=== PATIENT | male | born 1980 | race Caucasian/White ===

== ENCOUNTER 2018-09-19 10:15 | Day surgery (SDC) | payer OTHER ==
--- NOTE | 2018-09-13 09:48 | PREOPHP ---
DATE OF ADMISSION: 09/19/2018 Patient to have surgery with Dr. Bright Aguilera on 09/19/2018. REASON FOR CONSULTATION: Consultation requested by Dr. Bright Aguilera for medical evaluation and trang arance of a 37-year-old gentleman about to undergo surgery. Thank you, Dr. Aguilera, for allowing us to participate in care of this patient. HISTORY OF PRESENT ILLNESS: Bryce Jaime is a a 37-year-old gentleman, issues with his right kn ee, currently being admitted for correction of the above. In terms of his prior medical and surgical history, has had no medical hospitalizations, had a fractured right humerus for which he had an open reduction and internal fixation done. He has also had an appendectomy and besides his right humerus , also fractured his clavicle. MEDICATIONS: He takes no chronic medications. ALLERGIES: Not allergic to any medications. SOCIAL HISTORY: The patient has a significant other, has 2 children. Alcohol socially. Tobacco soc ially. Does drink coffee. Has no difficulty sleeping at night and is employed. FAMILY HISTORY: Both parents are living. Father is 70, mother 65, both parents have diabetes and fa ther has hypertension as well. Two siblings in good health. There is family history of diabetes, hy pertension and stroke. No heart or cancer to his knowledge. REVIEW OF SYSTEMS HEENT: Denies any significant headaches, diplopia etc. CARDIORESPIRATORY: Denies any chest pain or shortness of breath. GASTROINTESTINAL: No melena, no hematemesis. GENITOURINARY: No urgency, frequency. MUSCULOSKELETAL: Positive for right knee pain. NEUROPSYCHIATRIC: Unremarkable. GENERAL HEALTH: As above. PHYSICAL EXAMINATION: VITAL SIGNS: The patient's blood pressure was 134/72, pulse was 68 and regular, respirations were 18 , temperature 97.7, height 5 feet 9 inches, weight 237 pounds. GENERAL: The patient was noted to be a well-developed, well-nourished male, alert and cooperative, i n no apparent acute distress, oriented to time, place, and person. HEAD, EARS, EYES, NOSE AND THROAT: Head was atraumatic. Eyes: Pupils were equal, reacted to light and accommodation. Fundi were benign. Tympanic membranes were unremarkable. Nose was negative. Mo uth was unremarkable. Fair oral hygiene was present. NECK: Supple without any rigidity. Trachea was midline. Thyroid was within normal limits. Neck ve ins were flat. Carotid pulses were equal. No bruits were heard. BACK: Unremarkable. CHEST: Symmetrical. BREASTS AND AXILLARY: Did not reveal any masses. LUNGS: Clear. HEART: Examination of the heart, PMI was 5th intercostal space at the midclavicular line. Regular s inus rhythm was noted. No significant murmurs, rubs, or gallops being elicited. ABDOMEN: Soft, good bowel sounds were noted. No significant organomegaly, masses, or tenderness. S car from prior surgery was noted. GENITALIA: Normal male external genitalia. RECTAL AND PROSTATIC: Per PCP. EXTREMITIES: Did not reveal any clubbing, edema or cyanosis. Scar was noted in the right arm from p rior surgery. Peripheral pulses were physiologic. SKIN: Moist and warm without any eruptions. No gross lymphadenopathy was noted. NEUROLOGIC: Grossly intact. IMPRESSION: 1. Torn meniscus, right knee. 2. Stable health. DISCUSSION: Review of laboratory and other data revealed the following: Patient's chemistry panel i ncluding electrolytes, glucose, BUN, creatinine, calcium and uric acid were normal. The patient's pr oteins were normal. Patient's liver function tests revealed an elevated SGPT and SGOT, probably seco ndary to fatty infiltration of the liver. Magnesium and hemoglobin A1c were normal as was CBC, UA, P T and PTT. Patient's EKG revealed some nonspecific ST-T wave changes, but basically was normal and n o acute changes being noted, and there were no acute cardiopulmonary changes or acute infiltrates not ed on his chest x-ray. DISCUSSION: Dr. Aguilera, I see no contraindication to this patient undergoing current proposed surge ry under desired form of anesthesia. I feel he is a suitable candidate at this particular point in t enma. Thank you again, Dr. Aguilera, for allowing us to participate in the care of this patient. Dictated By: RENUKA FUENTES/SIENNA Conf#: [id number] DID#: [id number]
[2018-09-17 16:31] VITALS: BMI 34.2
[2018-09-19] VITALS (12 sets, daily range): BP systolic 120–140; BP diastolic 70–87; PULSE 58–68; RESP 11–23; Ht 175.3 cm; Wt 107.0 kg
[~2018-09-19] VITALS: Ht 175.3 cm; Wt 107.0 kg
--- NOTE | 2018-09-19 06:02 | HPN ---
Date/Time of Note Date/Time of Note DATE: 09/19/18 TIME: 06:02 Interval H&P Admission Note Pt. seen H&P reviewed: No system changes SAGAR PINEDA MD Sep 19, 2018 06:02
--- NOTE | 2018-09-19 06:06 | PDOCDIS ---
Discharge Instructions DIAGNOSIS Discharge Diagnosis Medial meniscus tear CONDITION [id number] Patient Condition: [id number] Good HOME CARE INSTRUCTIONS: [id number] Diet Instructions: [id number] Regular ACTIVITY: [id number] Activity Restrictions: Iocfc2h Rest between Activity Keep Limb Elevated [id number] Bathing Restrictions: [id number] Shower FOLLOW UP/APPOINTMENTS Follow-up Plan 2 weeks in the office SCHOOL/WORK RELEASE May return to School/Work with: With Restrictions School/Work Release Comment: Crutches as necessary SAGAR PINEDA MD Sep 19, 2018 06:06
--- NOTE | 2018-09-19 06:06 | OPR ---
Date/Time of Note Date/Time of Note DATE: 09/19/18 TIME: 06:02 Operative Report Procedure Date: Sep 19, 2018 Preoperative Diagnosis Right knee medial meniscus tear Postoperative Diagnosis 1. Right knee medial synovial plica 2. Right knee tibial plateau subchondral fracture Operation/Procedure Performed 1. Right knee arthroscopy with sense of debridement and synovectomy of synovial shelf Surgeon see signature line Oral Therapist Arden Galvan MD Anesthesia Type: general Estimated Blood Loss: none Transfusion none Specimen None Grafts/Implants See operative note Complications none Pt Condition Post Procedure: stable Disposition: PACU Procedure Description DOWNSTAIRS MAID SURGEON: Arden Galvan MD was asked to be present at my request as a result of the complexity associated with this procedure including positioning of the extremity and manipulation of the instrumentation while the surgeon performs the repair and debridement. In my opinion, the assistance offered by a operating room surgical technician is insufficient and Dr. Galvan should be compensated for this time. PROCEDURE IN DETAIL: Following the administration of general endotracheal anesthesia, the patient was placed in the supine position. Examination of the right knee range of motion revealed full range with no ACL or PCL laxity. There was no Rafael's. With respect to stability, the ACL, PCL and collateral ligaments appeared to be stable. With respect joint effusion, there was none. The right lower extremity was then prepped and draped in the usual sterile f ashion after the infiltration. Anterior portals were then created medially and laterally. Diagnostic arthroscopy of the patellofemoral joint revealed that the patellofemoral joint had normal tracking and normal articular cartilage. There was one small area of grade 2 change laterally. In addition, there was a very thick medial synovial plica which had an area of erosion over the medial condyle extreme edge. This area was resected and a complete synovectomy in that area was completed. The medial joint space was entered and the medial meniscus was seen to have a tear. The articular surfaces appeared completely normal both to visualization and probing with the exception of a small area over the medial aspect of the tibial articular surface that had some grade 2 changes. There was some mild softening there. The medial meniscus was carefully probed throughout with no evident tearing. It appeared that the stellate tear that was noted on the MRI had actually healed since it was a relatively peripheral tear. The intercondylar notch was visualized and the ACL and PCL were normal with the exception of some severe synovitis and a very thickened ligamentum patella. The lateral joint space was then entered and the lateral articular surfaces were normal to visualization and probing. The lateral meniscus was also normal to visualization and probing. The joint was then thoroughly irrigated and closed. The wounds were closed using 3-0 Vicryl, 4-0 Monocryl and Steri-Strips. Sterile dressing and TATI hose were applied. The patient was awakened and transported to recovery in stable condition, having tolerated the procedure well. SAGAR PINEDA MD Sep 19, 2018 06:06
[~2018-09-19 10:15] MED LIST: CEFAZOLIN 2 GM/50 ML (PMX) 50 ML IVPB ONE; CEFAZOLIN 2 GM/50 ML (PMX) 50 ML IVPB SCH; DEXAMETHASONE 2 MG TAB PO ONE; GABAPENTIN 300 MG CAP PO ONE; oxyCODONE (CR) 10 MG TAB [oxyCONTIN] PO ONE
[2018-09-19] MEDS ORDERED: DEXAMETHASONE 2 MG TAB PO ONE (13:00)
--- NOTE | 2018-09-19 13:44 | PREAC ---
Date/Time of Note Date/Time of Note DATE: 09/19/18 TIME: 13:43 Anesthesia Eval and Record Evaluation Time Pre-Procedure Interview DATE: 09/19/18 TIME: 13:43 Age 37 Sex male NPO: 8 hrs Preoperative diagnosis Rt knee medial meniscus tear Planned procedure Rt knee arthroscopy, medial meniscus repair Past Medical History Past Medical History: Includes GI: Morbid obesity Surgery & Anesthesia Issues No known issue Meds Anticoagulation: No Beta Lulú within 24 hr: No Reason Beta Lulú not given: Pt. not on B-Lulú Current Medications Bupivacaine HCl/ Morphine Sulfate/ Epinephrine/ Ketorolac Tromethamine/ Clonidine/Sodium Chloride/ Vancomycin HCl INTRA-OP IRR ; Start 09/19/18 at 16:00 Cefazolin Sodium/ Dextrose 50 ml @ 100 mls/hr PRE-OP IVPB ; Start 09/19/18 at 07:00; Stop 09/19/18 at 19:00 Meds reviewed: Yes Allergies Coded Allergies: No Known Allergies (Verified Allergy, Unknown, 09/17/18) Allergies Reviewed: Yes Labs/Studies Labs Reviewed: Reviewed by anesthesiologist test: N/A Studies: ECG Pre-procedure Exam Last vitals Vital Signs Date Temp Pulse Resp B/P (MAP) Pulse Ox O2 O2 Flow FiO2 Time Delivery Rate 09/19/18 98.7 66 16 129/84 99 13:13 (99) Airway: Adequate mouth opening, Adequate thyromental dist Mallampati: Mallampati III Teeth: Normal Lung: Normal Heart: Normal ASA Physical Status ASA physical status: 3 Emergency: None Planned Anesthetic General/MAC: LMA Planned Pain Management Parenteral pain med Pre-operative Attestations Prior to commencing anesthesia and surgery, the patient was re-evaluated, there was verification of: *The patient's identity *The results of appropriate recent lab work and preoperative vital signs *The above evaluation not changing prior to induction *Anesthetic plan, risk benefits, alternative and complications discussed with patient/family; questions answered; patient/family understands, accepts and wishes to proceed. BETH DEGROOT MD Sep 19, 2018 13:44
[2018-09-19] MEDS ORDERED: ROPIVACAINE 0.5 % 30 ML VIAL ONE (13:47)
[2018-09-19] MEDS ORDERED: FENTAnyl 50 MCG/ML VIAL ONE (13:48)
[2018-09-19] MEDS ORDERED: MIDAZOLAM 1 MG/ML 2 ML INJ ONE (13:48)
[2018-09-19] MEDS ORDERED: PROPOFOL 20 ML ONE (14:25)
[2018-09-19] MEDS ORDERED: LIDOCAINE 2% (SDV) 5 ML INJ ONE (14:25)
[2018-09-19] MEDS ORDERED: CEFAZOLIN 1 GM INJ ONE (14:25)
[2018-09-19] MEDS ORDERED: ONDANSETRON 4 MG INJ ONE (14:26)
--- NOTE | 2018-09-19 14:36 | PAC ---
Date/Time of Note Date/Time of Note DATE: 09/19/18 TIME: 14:35 Post-Anesthesia Notes Post-Anesthesia Note Last documented vital signs Vital Signs Date Temp Pulse Resp B/P (MAP) Pulse Ox O2 O2 Flow FiO2 Time Delivery Rate 09/19/18 98.7 66 16 129/84 99 13:13 (99) Activity: WNL Respiratory function: WNL Cardiovascular function: WNL Mental status: Baseline Pain reasonably controlled: Yes Hydration appropriate: Yes Nausea/Vomiting absent: Yes Comments BP:125/67, P:78, Spo2:100%, T:98,8 BETH DEGROOT MD Sep 19, 2018 14:36
[2018-09-19] MEDS ORDERED: MEPERIDINE 25 MG INJ ONE (14:45)
[2018-09-19] MEDS ORDERED: KETOROLAC 30 MG INJ IV PRN (15:00)
[2018-09-19] MEDS ORDERED: OXYCODONE/ACETAMINOPHEN (5/325) TAB PO PRN ×2 (15:00)
[2018-09-19] MEDS ORDERED: ONDANSETRON 4 MG INJ IV PRN (15:00)
[2018-09-19] MEDS ORDERED: FENTAnyl 50 MCG/ML VIAL IV PRN (15:00)
[2018-09-19] MEDS ORDERED: METOCLOPRAMIDE 10 MG INJ IV PRN (15:00)
[2018-09-19] MEDS ORDERED: MEPERIDINE 25 MG INJ IV PRN (15:00)
[2018-09-19] MEDS ORDERED: HYDROmorphONE 1 MG/5 ML IV SYRINGE IV PRN ×2 (15:00)
[2018-09-19] MEDS ORDERED: DIPHENHYDRAMINE 50 MG INJ IV PRN (15:00)
[2018-09-19] MEDS ORDERED: BUPIVACAINE 0.5% (SDV) 30 ML, morphine SULFATE (PF) 8 MG, EPINEPHrine 0.3 MG, KETOROLAC... IRR SCH ×7 (16:00)
== END 2018-09-19 16:20 | disposition home or self-care (01) ==
LOC: SDS 10:15
PROVIDERS: ATTEND Orthopaedic Surgery
DX: M67.51 Plica syndrome, right knee (principal); S82.141A Displaced bicondylar fracture of right tibia, initial encounter for closed fracture; X58.XXXA Exposure to other specified factors, initial encounter; Y93.64 Activity, baseball
CPT/HCPCS: 29875; J0171; J0690; J0735; J1885; J2175; J2250; J2274; J2405; J2795; J3010; J3370